=== PATIENT | female | born 1995 | race Caucasian/White ===

== ENCOUNTER 2016-11-26 23:44 | Emergency (ER) | payer OTHER ==
[~2016-11-26] VITALS: Ht 170.2 cm; Wt 59.1 kg
[2016-11-26 23:48] VITALS: TEMP 97.2
[2016-11-26] MEDS ORDERED: ADDERALL20 MG PO (23:50)
[2016-11-26] MEDS ORDERED: NEXPLANON68 MG ID (23:50)
[2016-11-26] MEDS ORDERED: ADDERALL10 MG PO (23:51)
[2016-11-27] MEDS ORDERED: DOXYCYCLINE 10100 MG PO (00:13)
[2016-11-27] MEDS ORDERED: NORCO 325 MG-51 TAB PO (00:13)
[2016-11-27 00:31] VITALS: BP 111/92; PULSE 108
[2016-12-02] MEDS ORDERED: OMNICEF 300MG300 MG PO (17:28)
== END 2016-11-27 00:38 | disposition home or self-care (01) ==
LOC: COL.ER 23:44
DX: L02.416 Cutaneous abscess of left lower limb (principal)